=== PATIENT | female | born 1950 | race Caucasian/White ===

== ENCOUNTER 2019-07-19 01:20 | Emergency (ER) | payer OTHER ==
[~2019-07-19] VITALS: Ht 162.6 cm; Wt 116.2 kg
--- OUTSIDE RECORDS SUMMARY | 2019-07-19 01:30 | XMS REPORT | Continuity of Care Document ---
Demographics Preferred Language Unknown Marital Status Unknown Caodaism Affiliation Unknown Race Unknown Ethnic Group Unknown Author Organization Unknown Address Unknown Phone Unavailable Allergies There is no data. Medications There is no data. Problems There is no data. Procedures There is no data. Results Test Result Range CULTURE, ANAEROBIC AND AEROBIC - 0 13:29 CULTURE, ANAEROBIC BACTERIA W/GRAM STAIN SEE NOTE NRG CULTURE, AEROBIC BACTERIA SEE NOTE NRG Encounters ACCT No. Visit Date/Time Discharge Status Pt. Type Provider Facility Loc./Unit Complaint [id number] 05/06/2019 11:40:00 Document Registration
[2019-07-19] MEDS ORDERED: ORPHENADRINE 60 MG/2 ML (NORFLEX) AMP IV STA (01:31)
--- NOTE | 2019-07-19 01:31 | ED Hip Pain/Injury ---
General Stated Complaint: BACK PAIN Source: patient, EMS History of Present Illness Date Seen by Provider: Jul 19, 2019 Time Seen by Provider: 01:30 Initial Comments 69-year-old female presents with right posterior hip pain. Patient fell last night. Patient was able ambulate on it during the day. That tonight when she went into bed she was still ambulating on. However during the night when she went to get up she is having signally worsening pain and states she is unable to bear weight. Patient with no noticeable deformity. Patient denies any other injury. Allergies and Home Medications Allergies Coded Allergies: codeine (Verified Allergy, Unknown, 07/19/19) Patient Home Medication List Home Medication List Reviewed: Yes Review of Systems Constitutional: no symptoms reported EENTM: no symptoms reported Respiratory: no symptoms reported Cardiovascular: no symptoms reported Gastrointestinal: no symptoms reported Musculoskeletal: see HPI Past Mydobwf-[place]-Eirspy Hx Past Med/Social Hx: Reviewed Nursing Past Med/Soc Hx Patient Social History Recent Foreign Travel: No Contact w/Someone Who Travel: No Physical Exam Vital Signs Capillary Refill : Height, Weight, BMI Height: '" Weight: lbs. oz. kg; BMI Method: General Appearance: Mild Distress, Other (patient is very dramatic.) Cardiovascular: Regular Rate, Rhythm, No Edema Respiratory: Chest Non Tender, Lungs Clear Extremity: Normal Capillary Refill, Other (patient with tenderness in the right hip and right low back. Patient screens with even the slightest little touch prior to even palpation.) Neurologic/Psychiatric: Alert, Oriented x3 Progress/Results/Core Measures Results/Orders My Orders Orders - LINDA PENA DO Orphenadrine Injection (Norflex Injectio (07/19/19 01:31) Hip 2-3 View Right (07/19/19 01:31) Progress Progress Note : Time: 02:01 Progress Note Patient with no fracture on x-ray. Patient was able to move her hip without difficulty. Patient will be discharged home. She should follow-up with her primary care provider as needed. Departure Impression Primary Impression: Contusion of right hip, initial encounter Disposition: 01 HOME, SELF-CARE Condition: Stable Departure-Patient Inst. Patient Instructions: Contusion (DC), Hip Pointer (DC), Low Back Pain (DC) Add. Discharge Instructions: 4% topical lidocaine with menthol as directed on package Emergency department focuses on treating and ruling out life-threatening diseases. Whenever possible, a diagnosis is given. However, most patients are given an impression based on their history, physical exam, and workup during your brief time in the ER. Information about probable diagnosis and other educational material has been provided. Please take the time to read and understand this information. It is very important that you follow up with a physician as discussed during the visit today. Failure to adhere to your follow-up instructions may lead to severe disability, injury, or so please make sure to keep your appointments or obtain one as requested. Please keep in mind the emergency department is not designed to your primary care or "family doctor" and nonurgent issues are best evaluated by an outpatient physician Scripts Cyclobenzaprine HCl (Cyclobenzaprine HCl) 5 Mg Tablet 5 MG PO Q8H PRN for PAIN-MODERATE (5-7), #15 TAB Prov: LINDA PENA DO 07/19/19 Naproxen (Naprosyn) 500 Mg Tablet 500 MG PO BID, #30 TAB 0 Refills Prov: LINDA PENA DO 07/19/19 LINDA PENA DO Jul 19, 2019 01:31
[2019-07-19 01:32] VITALS: BP 159/68
[2019-07-19] MEDS ORDERED: CYCL5TAB PO (02:01)
[2019-07-19] MEDS ORDERED: NAPR-1071 PO (02:01)
--- NOTE | 2019-07-19 07:30 | Diagnostic Imaging Report ---
INDICATION: Fall. Now with right hip pain. COMPARISON: None. FINDINGS: 2 views of the right hip were obtained and show no fractures, dislocations, or other acute bony abnormalities. Joint spaces are well maintained throughout. The soft tissues appear unremarkable. No radiopaque foreign bodies are identified. IMPRESSION: Unremarkable radiographic exam of the right hip. Dictated by: Dictated on workstation # [id number]
== END 2019-07-19 02:08 | disposition home or self-care (01) ==
LOC: ER FS 01:26
DX: S70.01XA Contusion of right hip, initial encounter (principal); W19.XXXA Unspecified fall, initial encounter
CPT/HCPCS: 73502

== ENCOUNTER 2019-12-28 18:53 | Emergency (ER) | payer MEDICARE ==
[~2019-12-28] VITALS: Ht 162.5 cm; Wt 117.0 kg
[~2019-12-28 18:53] MED LIST: CYCL5TAB PO; NAPR-1071 PO
--- NOTE | 2019-12-28 19:10 | ED Lower Extremity ---
General Chief Complaint: Trauma-Non Activation Stated Complaint: FALL Source: patient Exam Limitations: no limitations History of Present Illness Date Seen by Provider: Dec 28, 2019 Time Seen by Provider: 19:00 Initial Comments 69-year-old female presents via EMS with complaint of having a fall earlier this morning (states her grand daughter was crawling on her leg and she fell down a set of stairs) and has been excessively fatigued this afternoon. Complaints of pain on her right side, primarily lower extremity, not upper. Slight headache without vomiting or confusion. No lateralizing weakness or difficulty speaking. History of Andres's palsy with left facial droop. Allergies and Home Medications Allergies Coded Allergies: codeine (Verified Allergy, Unknown, 07/19/19) Home Medications Cyclobenzaprine HCl 5 Mg Tablet, 5 MG PO Q8H PRN for PAIN-MODERATE (5-7) Prescribed by: LINDA PENA on 07/19/19200 Naproxen 500 Mg Tablet, 500 MG PO BID Prescribed by: LINDA PENA on 07/19/19200 Patient Home Medication List Home Medication List Reviewed: Yes Review of Systems Constitutional: see HPI; No dizziness, No fever; malaise (tired); No weakness EENTM: no symptoms reported Respiratory: no symptoms reported; No cough, No short of breath Cardiovascular: No chest pain, No edema, No palpitations, No syncope Gastrointestinal: No abdominal pain, No loss of appetite, No nausea, No vomiting Musculoskeletal: see HPI; No back pain; joint pain (ankle, knee and hip on Right side); No joint swelling, No neck pain Skin: No change in color, No lesions; other (abrasions of R ankle and R knee) Past Grcqbvj-Pbfitv-Vcisod Hx Past Med/Social Hx: Reviewed Nursing Past Med/Soc Hx Patient Social History 2nd Hand Smoke Exposure: No Recent Hopitalizations: No Seasonal Allergies Seasonal Allergies: No Past Medical History Surgeries: Yes Respiratory: No Cardiac: No Neurological: No Genitourinary: No Gastrointestinal: No Musculoskeletal: Yes Chronic Back Pain Endocrine: No HEENT: No Cancer: No Psychosocial: No Integumentary: No Physical Exam Vital Signs Vital Signs - First Documented 12/28/19 19:04 Temp 36.4 Pulse 80 Resp 20 B/P (MAP) 183/70 (107) Pulse Ox 92 O2 Delivery Room Air Capillary Refill : Height, Weight, BMI Height: '" Weight: lbs. oz. kg; 43.00 BMI Method: General Appearance: WD/WN, no apparent distress HEENT: PERRL/EOMI, normal ENT inspection, other (LEft facial droop. Left eye ptosis) Neck: non-tender, supple, normal inspection Cardiovascular: regular rate, rhythm, no edema Respiratory: chest non-tender, lungs clear Gastrointestinal: non tender, soft Back: normal inspection, no CVA tenderness, no vertebral tenderness Hips: left hip non-tender, left hip normal inspection; right hip pain, right hip soft tissue tenderness Legs: bilateral leg non-tender, bilateral leg normal inspection, bilateral leg normal range of motion Knees: left knee non-tender, left knee normal inspection, left knee no evidence of injury; right knee pain, right knee soft tissue tenderness Ankles: left ankle non-tender, left ankle normal inspection, left ankle normal range of motion, left ankle no evidence of injury; right ankle pain, right ankle soft tissue tenderness Feet: bilateral foot non-tender, bilateral foot normal inspection, bilateral foot normal range of motion Neurologic/Tendon: normal sensation, normal motor functions Neurologic/Psychiatric: no motor/sensory deficits, alert, normal mood/affect, oriented x 3 Skin: normal color, warm/dry, other (superficial abrasions- Right ankle adn Right ant. knee) Progress/Results/Core Measures Results/Orders My Orders Orders - RUSLAN LAINEZ DO Ct Head Wo (12/28/19 19:03) Ed Iv/Invasive Line Start (12/28/19 19:03) Ankle 3 View Right (12/28/19 19:03) Knee 3 View Right (12/28/19 19:03) Pelvis With Right Hip 2-3 View (12/28/19 19:03) Vital Signs/I&O 12/28/19 19:04 Temp 36.4 Pulse 80 Resp 20 B/P (MAP) 183/70 (107) Pulse Ox 92 O2 Delivery Room Air Diagnostic Imaging Diagonstic Imaging: CT Comments IMPRESSION: 1. There is no evidence for an acute intracranial abnormality. There is no sign of a mass lesion either. 2. If clinical concern regarding an underlying abnormality persists, then MRI would be recommended for further study. Dictated on workstation # [id number] Dict: 12/28/191931 Trans: 12/28/191941 [facility] Interpreted by: LIZA HURTADO MD Electronically signed by: MPRESSION: 1. There are post surgical and post traumatic changes involving the ankle but there is no sign of an acute bony abnormality. 2. There is a question of osteochondritis dissecans of the medial aspect of the talar dome. Recommendations as above. Dictated on workstation # [id number] Dict: 12/28/191952 Trans: 12/28/191999 [facility] Interpreted by: LIZA HURTADO MD Electronically signed by: FINDINGS: The study is less than optimal due to motion artifact on the oblique view. There is no fracture, dislocation or acute bony abnormality evident. The knee joint is fairly well maintained. Soft tissues are unremarkable. IMPRESSION: There is no evidence for an acute bony abnormality. Dictated on workstation # [id number] Dict: 12/28/191954 Trans: 12/28/192000 [facility] Interpreted by: LIZA HURTADO MD Electronically signed by: FINDINGS: There is no fracture, dislocation or acute bony abnormality evident. There is moderate degenerative disease of the right hip joint and the right sacroiliac joint. These degenerative changes are similar to the prior exam of 07/19/2019. There is also moderate degenerative disease of the left hip joint and left sacroiliac joint and at least moderate degenerative disease of the visualized lower lumbar spine. The soft tissues are unremarkable. IMPRESSION: There is no evidence for an acute bony abnormality. Dictated on workstation # [id number] Dict: 12/28/191951 Trans: 12/28/191956 [facility] [phone] Interpreted by: LIZA HURTADO MD Electronically signed by: Departure Impression Primary Impression: Fall (on) (from) other stairs and steps, initial encounter Additional Impressions: Knee pain Qualified Codes: M25.561 - Pain in right knee Ankle pain Qualified Codes: M25.571 - Pain in right ankle and joints of right foot Hip pain, right Disposition: 01 HOME, SELF-CARE Condition: Stable Departure-Patient Inst. Decision time for Depature: 20:03 Referrals: CHARISSE SULLIVAN DO (PCP/Family) Primary Care Physician Patient Instructions: Minor Head Injury (DC), Preventing Falls in the Older Adult Add. Discharge Instructions: Follow-up with yout PCP, Dr García in 1 week, sooner if worsening problems or concerns All discharge instructions reviewed with patient and/or family. Voiced understanding. RUSLAN LAINEZ DO Dec 28, 2019 19:10
--- NOTE | 2019-12-28 19:42 | Diagnostic Imaging Report ---
PROCEDURE: CT head without contrast. TECHNIQUE: Multiple contiguous axial images were obtained through the brain without the use of intravenous contrast. Auto Exposure Controls were utilized during the CT exam to meet ALARA standards for radiation dose reduction. INDICATION: Trauma. COMPARISON: There are no prior studies available for comparison. FINDINGS: There is no mass, shift of the midline or hemorrhage to suggest an acute intracranial abnormality. The ventricles are not abnormally dilated. The bone windows show no sign of a fracture or a destructive lesion. The orbits are symmetrical and within normal limits. The sinuses, where visualized, are clear. IMPRESSION: 1. There is no evidence for an acute intracranial abnormality. There is no sign of a mass lesion either. 2. If clinical concern regarding an underlying abnormality persists, then MRI would be recommended for further study. Dictated by: Dictated on workstation # [id number]
--- NOTE | 2019-12-28 19:57 | Diagnostic Imaging Report ---
INDICATION: Fell, hip pain. EXAMINATION: Pelvis and right hip at 7:32 p.m. Single AP view of the pelvis and a lateral view of the right hip were obtained. FINDINGS: There is no fracture, dislocation or acute bony abnormality evident. There is moderate degenerative disease of the right hip joint and the right sacroiliac joint. These degenerative changes are similar to the prior exam of 07/19/2019. There is also moderate degenerative disease of the left hip joint and left sacroiliac joint and at least moderate degenerative disease of the visualized lower lumbar spine. The soft tissues are unremarkable. IMPRESSION: There is no evidence for an acute bony abnormality. Dictated by: Dictated on workstation # [id number]
--- NOTE | 2019-12-28 20:00 | Diagnostic Imaging Report ---
INDICATION: Injury, ankle pain. EXAMINATION: Right ankle at 7:41 p.m. Three views were obtained. COMPARISON: There are no prior studies available for comparison. FINDINGS: There is an orthopedic plate and screw fixation device along the lateral aspect of the distal fibula. The orthopedic hardware appears to be securing a long-standing fracture of the distal fibula. There is no fracture or acute bony abnormality appreciated. There are two small calcific densities interposed between the medial malleolus and the medial aspect of the talus. These are fairly well circumscribed and I suspect that these are sequela of prior trauma as opposed to an acute abnormality. There is a vague area of slightly diminished density in the medial aspect of the talar dome. This could be secondary to volume averaging as opposed osteochondritis dissecans. If further study is desired, then MRI would be recommended. The ankle mortise is not widened. There is soft tissue edema about the lateral aspect of the ankle joint. IMPRESSION: 1. There are post surgical and post traumatic changes involving the ankle but there is no sign of an acute bony abnormality. 2. There is a question of osteochondritis dissecans of the medial aspect of the talar dome. Recommendations as above. Dictated by: Dictated on workstation # [id number]
--- NOTE | 2019-12-28 20:02 | Diagnostic Imaging Report ---
INDICATION: Fell, knee pain. EXAMINATION: Right knee at 7:36 p.m. Three views were obtained. COMPARISON: There are no prior studies available for comparison. FINDINGS: The study is less than optimal due to motion artifact on the oblique view. There is no fracture, dislocation or acute bony abnormality evident. The knee joint is fairly well maintained. Soft tissues are unremarkable. IMPRESSION: There is no evidence for an acute bony abnormality. Dictated by: Dictated on workstation # [id number]
[2019-12-28 20:31] VITALS: BP 145/57
== END 2019-12-28 20:31 | disposition home or self-care (01) ==
LOC: EDUNIT# 18:53 → ER FS 18:54
DX: S90.511A Abrasion, right ankle, initial encounter (principal); S80.211A Abrasion, right knee, initial encounter; M25.551 Pain in right hip; G89.29 Other chronic pain; M54.9 Dorsalgia, unspecified; Z79.1 Long term (current) use of non-steroidal anti-inflammatories (NSAID); Z88.5 Allergy status to narcotic agent; W10.9XXA Fall (on) (from) unspecified stairs and steps, initial encounter
CPT/HCPCS: 70450; 73502; 73562; 73610